=== PATIENT | female | born 1950 | race Caucasian/White ===

== ENCOUNTER 2021-10-05 15:22 | Outpatient (RCR) | payer OTHER, SELFPAY ==
--- NOTE | 2021-10-05 16:51 | PTOPEVAL ---
Thank you for referring Ignacia Pate to [facility].? Ignacia gilman presents to therapy clinic today without BPPV symptoms. During eval was unable to duplicate her symptoms. She has been provided eduction for home treatment if symptoms return. Will hold chart open for 30 days for possible return of her symptoms. If she returns, will plan to see her 1x/wk as needed to address her symptoms. Please review, sign, date and return this plan of care NORMA. I agree with and certify that the following plan of care is medically necessary. Referring Physician Date Attending Provider: Filiberto Harris MD Past Medical History Source of Past Medical History Patient Gastrointestinal History Hx Diverticulitis Yes Hx Hernia Yes HEENT History Hx Sinus Problems Yes Evaluation Information Problem Diagnosis BPPV Onset 6 month Subjective Information She c/o dizziness with turning Query Text:As Reported By Patient/ to the right in bed. States Family is improved recently. But noticed increased symptoms with bending forward and returning upright or turning head to left. 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 Reports lights will bother her eyes. Denies any issues with her neck. Pain Assessment Timing of Pain Assessment Timing of Pain Assessment Assessment Self Report Self Report Pain Level 0 Pain Score Pain Score 0: Self Report Cervical and Lumbar ROM Cervical ROM Cervical Flexion (0-60) 70:Active in Degrees Cervical Extension (0-70) 70:Active in Degrees Cervical Lateral Flexion Right (0-50) 40:Active in Degrees Cervical Lateral Flexion Left (0-50) 40:Active in Degrees Cervical ROM Comments no pain with motion Vestibular Evaluation Vestibular Medical Information Previous Medical Care/Testing ENT Symptoms Increase Bend Forward,Lie Down (sit to supine),Rolling in Bed,Sitting up in Bed Symptoms Decrease Holding Head in one Position Standardized Tests Dizziness Handicap Inventory Standardized Test Scores (Number 0-100) 16 Vestibular Testing Smooth Pursuits Normal Convergence Near Point (CM) 5 Saccades WNL Gaze Stabilization with Fixation WNL Gaze Stabilization without Fixation WNL Head Shake with Fixation WNL [place]-Hallpike Left WNL Sandra-Hallpike Right WNL Horizontal Roll Test in Supine Left WNL Horizontal Roll Test in Supine Right WNL General Exercise General Exercises
--- NOTE | 2021-10-30 16:31 | PCPTNOTE ---
left message for pt regarding her symptoms. Informed her of the plan to close her therapy chart due to no additional f/u visits needed.
--- NOTE | 2021-10-30 16:32 | PCPTNOTE ---
Admitting Provider: Attending Provider: Filiberto Harris MD Patient:Ignacia Pate Date of :1950 Physical Therapy Discharge Summary Patient has not returned for any further treatments since 10/05/2021, therefore she will be discharged at this time. Patient?s initial visit was on 10/05/2021 she had a total of 1 visits. BPPV assessment was performed, she was educated on home treatment program. She had been symptom free prior to her initial evaluation. Will DC skilled therapy services at this time. Thank you for referring this patient to [facility]. Please review, sign, date and return this discharge summary NORMA. I have been updated about the patient's current status and I agree with discharge from the above service at this time. Referring Physician Date
== END 2021-10-31 15:54 | disposition home or self-care (01) ==
LOC: ANHPT 15:22
PROVIDERS: PCP Internal Medicine; Visit Provider Otolaryngology
DX: H81.10 Benign paroxysmal vertigo, unspecified ear (principal)
CPT/HCPCS: 97110; 97161

== ENCOUNTER 2022-05-09 11:14 | Outpatient (CLI) | payer OTHER, SELFPAY ==
[2022-05-09 18:45] LABS: Basophils Percent Auto 0.4 % (0.2-1.2); Eosinophils Absolute Auto 0.2 K/mm3 (0-0.3); Eosinophils Percent Auto 2.1 % (0-4.4); Hematocrit 40.5 % (37.0-47.0); Hemoglobin 12.8 g/dL (12.0-15.0); Immature Granulocyte Absolute 0.03 K/mm3 (0.00-0.031); Immature Granulocyte Percent A 0.4 % (0-0.5); Lymphocytes Absolute Auto 3.15 K/mm3 (0.9-3.2); Lymphocytes Percent Auto 37.3 % (18.3-44.2); Mean Corpuscular HGB Conc 31.6 g/dl (32-36); Mean Corpuscular Hemoglobin 28.1 pg (26-34); Mean Corpuscular Volume 88.8 fl (80-100); Mean Platelet Volume 12.3 fl (7.4-10.4); Monocytes Absolute Auto 0.8 K/mm3 (0.1-0.6); Monocytes Percent Auto 9.1 % (2.6-8.5); Neutrophils Absolute Auto 4.3 K/mm3 (1.3-6.7); Neutrophils Percent Auto 50.7 % (45.5-73.1); Platelet Count Result 207 k/mm3 (150-375); Red Blood Count 4.56 M/mm3 (4.2-5.4); Red Cell Distribution Width 13.6 % (11.5-14.5); White Blood Count 8.5 K/mm3 (4.5-10.0)
[2022-05-09 20:00] LABS: Alanine Aminotransferase 67 U/L (6-35); Albumin Level 4.5 g/dL (3.5-5.1); Alkaline Phosphatase 83 U/L (38-126); Anion Gap 8 mmol/L (8-16); Aspartate Amino Transferase 59 U/L (14-36); Bilirubin,Total 0.4 mg/dL (0.2-1.3); Blood Urea Nitrogen 15 mg/dL (7-17); Calcium 9.9 mg/dL (8.4-10.2); Carbon Dioxide 29 mmol/L (22-30); Chloride 101 mmol/L (98-107); Cholesterol 219 mg/dL (0-200); Estimated Glomerular Filt Rate > 60; Glucose 74 mg/dL (65-110); HDL Direct 36 mg/dL; Potassium 4.4 mmol/L (3.4-5.0); Sodium 138 mmol/L (137-145); Triglycerides 203 mg/dL (<150)
[2022-05-09 20:11] LABS: LDL Cholesterol Direct 128 mg/dL
== END 2022-05-09 11:15 | disposition home or self-care (01) ==
LOC: ANHGOSHLAB 11:16
PROVIDERS: PCP Family Medicine; Visit Provider Family Medicine
DX: R53.83 Other fatigue (principal); Z13.220 Encounter for screening for lipoid disorders; Z13.228 Encounter for screening for other metabolic disorders
CPT/HCPCS: 36415; 80053; 80061; 85025

== ENCOUNTER 2022-05-18 11:34 | Outpatient (CLI) | payer OTHER, SELFPAY ==
[2022-05-18 19:11] LABS: Iron 70 ug/dL (37-170)
[2022-05-18 19:20] LABS: Percent Iron Saturation 24 % (20-50)
[2022-05-18 19:57] LABS: Hepatitis B Surface Antigen Negative (Negative)
[2022-05-18 20:03] LABS: HAV RESULT Negative (Negative); Hepatitis B Core IgM Result Negative (Negative)
[2022-05-18 20:14] LABS: Hepatitis C Virus Antibody Negative (Negative)
== END 2022-05-18 11:35 | disposition home or self-care (01) ==
PROVIDERS: PCP Family Medicine; Visit Provider Family Medicine
DX: R74.01 Elevation of levels of liver transaminase levels (principal)
CPT/HCPCS: 36415; 80074; 83540; 83550

== ENCOUNTER 2022-05-25 07:52 | Outpatient (CLI) | payer OTHER, SELFPAY ==
--- NOTE | ~2022-05-25 | US_ITS ---
EXAMINATION: US abdomen limited DATE: 05/25/2022 08:31 INDICATION: Elevated liver enzymes TECHNIQUE: Multiple grayscale and Doppler ultrasound images of the abdomen were obtained. COMPARISON: CT, 05/25/2015 FINDINGS: The head and body of the pancreas are normal. The pancreatic tail is obscured by bowel gas. The liver is normal with normal echogenicity and echotexture. No surface nodularity. Normal hepatope shonna flow in the main portal vein. The gallbladder is normal with no abnormal wall thickening, pericho lecystic fluid or stones. The normal common bile duct measures 5 mm. There was no sonographic Neves sign. IMPRESSION: 1. No sonographic correlate for the patient's symptoms. Reviewed, dictated and finalized at location B.
== END 2022-05-25 07:53 | disposition home or self-care (01) ==
PROVIDERS: PCP Family Medicine; Visit Provider Family Medicine
DX: R74.01 Elevation of levels of liver transaminase levels (principal)
CPT/HCPCS: 76705

== ENCOUNTER 2025-03-31 07:41 | Emergency (ER) | payer MEDICARE, SELFPAY ==
[2025-03-31] VITALS (34 sets, daily range): BP systolic 102–147; BP diastolic 65–102; PULSE 60–63; RESP 18; O2SAT 94–100
--- NOTE | ~2025-03-31 | CT_ITS ---
CT of the Abdomen and Pelvis: Indication: Abdominal pain Technique: 2.5 mm axial scans were obtained through the abdomen and pelvis following intravenous adm inistration of 100 cc of Omnipaque 350. Dose reduction technique was used on this scan by utilizing a utomated exposure control and iterative reconstruction technique. The dose-length product (DLP) was 2 69.42 mGy-cm. Findings: Scans through the lung bases are unremarkable. The liver, spleen, pancreas, gallbladder, adrenals and kidneys are within normal limits. No evidence of aortic aneurysm. No lymphadenopathy. No bowel obstruction or bowel wall thickening. There is no evidence to suggest acute appendicitis. Images through the pelvis were performed. Urinary bladder unremarkable. There is a large adnexal mass immediately anterior to the uterus with multiple subtle septations, measuring 11.6 x 8.2 x 10.7 cm i n overall size. Questionable soft tissue component at the inferior lateral aspect of the lesion. This is characterized the left ovary, though this is difficult to ascertain with certainty given the midl ine positioning of the lesion. No ascites. Impression: 11.6 x 8.2 x 10.7 cm complex adnexal mass, favored to arise from the left ovary. Questionable soft ti ssue component. Ovarian malignancy must be considered. Gynecological surgical consultation recommende d. Reviewed, dictated and finalized at location . Impression: 11.6 x 8.2 x 10.7 cm complex adnexal mass, favored to arise from the left ovary . Questionable soft tissue component. Ovarian malignancy must be considered. Gy necological surgical consultation recommended.
--- OUTSIDE RECORDS SUMMARY | 2025-03-31 07:44 | XMS_ITS | Clinical Summary ---
Author Organization [facility] Address [address] [place] [address] Care Team Providers Care Sketch Liner Name Role Phone Migule Angel Spence DO Primary Care Provider + Allergies Active Allergy Reactions Criticality Noted Date Comments Amoxicillin-Pot Clavulanate Other (see comment) 01/06/2024 Abdominal pain Medications Turmeric 500 MG Cap Active Multiple Vitamins-Minera ls (EYE VITAMINS OR) Active Multiple Vitamin (MULTIVITAMIN ADULT OR) Active montelukast (SINGULAIR) 10 MG tabletIndicatio ns:Seasonal allergic rhinitis, unspecified trigger Take 1 tablet (10 mg total) by mouth nightly at bedtime. 30 tablet 4 Active Additional Information Patient not taking.Reason: with vitamin d, Reported on 03/10/2025 omega-3 acid (LOVAZA) 1 GM capsule Take 2 capsules (2 g total) by mouth 2 (two) times daily. Active ciprofloxacin (CIPRO) 250 MG tabletIndicatio ns:Acute cystitis with hematuria,Left flank pain Take 1 tablet (250 mg total) by mouth 2 (two) times daily for 7 days. 14 tablet 5 03/17/20 25 Active Problems No known active problems Encounters Date Type Department Care Team Description 03/10/2025 1:09 PM CDT - 03/10/2025 11:59 PM CDT Hospital Encounter [facility] [address] [place] [address] Emily Brooks, PA Discharge Disposition: Home or Self Care (Routine Discharge) 03/10/2025 11:42 AM CDT - 03/10/2025 1:08 PM CDT Hospital Encounter [facility] [address] [place] [address] Emily Brooks PA Discharge Disposition: Home or Self Care (Routine Discharge) 03/10/2025 11:00 AM CDT Office Visit [facility] [id number] [place] [phone] Emily Brooks PA Back Pain (Low back pain, fatigue, weakness, cramping pains to low abdominal area-hurts to urinate) 03/10/2025 Results Follow-Up [facility] [id number] [place] [phone] Emily Brooks PA URINALYSIS AUTO DIP, XR ABD KUB, URINE BACTERIA CULTURE 03/10/2025 Travel 03/09/2025 Telephone [facility] [address] [phone] Miguel Angel Spence, DO Question 02/10/[address] [phone] Miguel Angel Spence, DO Advice from Last 3 Months Immunizations Immunization Administration Dates Next Due Fluzone High Dose - >Age 65 (Prefilled Syringe) 07/17/2022 Family History Medical History Relation Comments Dementia Father Atrial fibrillation Mother Hypertension Mother Relation Status Comments Father Mother Alive Social History Tobacco Use Types Packs/Day Years Used Date Smoking Tobacco: Never Passive Smoke Exposure: Past Smokeless Tobacco: Never Tobacco Cessation:Counseling Given: No Alcohol Use Standard Drinks/Week Comments Not Currently 1.7 (1 standard drink = 0.6 oz p ure alcohol) once every 2 weeks PHQ-2 Answer Date Recorded Patient Health Questionnaire-2 Score 0 03/10/2025 Comments No Sex and Gender Information Value Date Recorded Sex Assigned at Not on file Legal Sex Female 8:13 PM CDT Gender Identity Not on file Sexual Orientation Not on file Occupation Industry Job Start Date Job End Date Not on file Not on file Not on file Not on file Last Filed Vital Signs Vital Sign Reading Time Taken Comments Blood Pressure 108/65 03/10/2025 11:04 AM CDT Pulse 83 03/10/2025 11:04 AM CDT Temperature 36.6 C (97.9 F) 03/10/2025 11:04 AM CDT Respiratory Rate 20 03/10/2025 11:04 AM CDT Oxygen Saturation 99% 03/10/2025 11:04 AM CDT Inhaled Oxygen Concentration - - Weight 59.9 kg (132 lb) 03/10/2025 11:04 AM CDT Height 160 cm (5' 3) 03/10/2025 11:04 AM CDT Body Mass Index 23.38 03/10/2025 11:04 AM CDT Plan of Treatment Health Maintenance Due Date Last Done Comments DTaP, Tdap and Td Vaccines ( 1 - Tdap) 1971 Mammogram Screening 1992 Pneumococcal Vaccine: 50+ Years (1 of 1 - PCV) 2002 Zoster Vaccines (1 of 2) 2002 Annual Medicare Wellness Visit 2017 Dexa Scan (General) 2017 COVID-19 Vaccine ( - 2023-2 5 season) 2024 Colorectal Cancer Screening FIT-DNA (3 Years) 10/08/2026 10/08/2023, 10/08/2023, 07/07/2020 RSV Immunization or 60+ Years (1 - 1-dose 75+ series) 2027 Hepatitis C Completed 11/16/2022 PHQ-2 (Physician [facility]) Completed 03/10/2025 Meningococcal B Vaccine Aged Out No l onger eligible based on patient's age to complete this topic Meningococcal Vaccine Aged Out No mariely ariel eligible based on patient's age to complete this topic RSV Immunizations Under 20 Months Aged Out No longer eligible b ased on patient's age to complete this topic Procedures Procedure Name Priority Date/Time Associated Diagnosis Comments XR ABD KUB STAT 03/10/2025 11:50 AM CDT Acute cystitis with hematuria Left flank pain URINE BACTERIA CULTURE Routine 03/10/2025 11:48 AM CDT Suspected UTI URINALYSIS AUTO DIP Routine 03/10/2025 Suspected UTI COLOGUARD (EXACT SCIENCE) Routine 10/08/2023 10:30 AM LOANS CONSULTANT Screening for malignant neoplasm of colon HEPATITIS C ANTIBODY Routine 11/16/2022 10:17 AM LOANS CONSULTANT Elevated liver enzymes Screening for lipid disorders Screening for endocrine, metabolic and immunity disorder Annual physical exam Need for hepatitis C screening test from Last 3 Months or Most Recently Relevant to Health Maintenance Results * XR ABD KUB (03/10/2025 11:50 AM CDT) Anatomical Region Laterality Modality Abdomen Radiographic Yasmine ging 03/10/2025 11:5 0 AM CDT Impressions 03/10/2025 11:52 AM CDT IMPRESSION: Moderate amount of fecal material throughout the colon. If further imaging evaluation the patient's hematuria is needed, CT examination recommended. Ordered By: EMILY BROOKS Interpreted By: Arsh Frye MD, 03/10/2025 11:50 AM Narrative 03/10/2025 11:52 AM CDT [place] [id number] [place] [address] Procedure(s): XR ABD KUB Date of service: 03/10/2025 11:44 AM Provided clinical information: 74 years, Female, left flank pain Procedure and materials: Supine view the abdomen. Comparison studies: None. Findings: There is a moderate amount of fecal material that is present throughout the colon. No gaseous distention of the large or small bowel. No definite radiopaque calculi overlying the kidneys or expected course of the ureters. Procedure Note Arsh Frye MD - 03/10/2025 [facility] [address] [place] [id number] Procedure(s): XR ABD KUB Date of service: 03/10/2025 11:44 AM Provided clinical information: 74 years, Female, left flank pain Procedure and materials: Supine view the abdomen. Comparison studies: None. Findings: There is a moderate amount of fecal material that is present throughoutthe colon. No gaseous distention of the large or small bowel. No definiteradiopaque calculi overlying the kidneys or expected course of theureters. IMPRESSION: Moderate amount of fecal material throughout the colon. If further imagingevaluation the patient's hematuria is needed, CT examinationrecommended. Ordered By: EMILY BROOKS Interpreted By: Arsh Frye MD, 03/10/2025 11:50 AM Emily [facility] Final Result * URINE BACTERIA CULTURE (03/10/2025 11:48 AM CDT) SPEC DESCRIPTION URINE CLEAN CATCH 03/10/2025 1:09 PM CDT [facility] SPECIAL REQUESTS NO SPECIAL REQUEST 03/10/2025 1:09 PM CDT [facility] CULTURE RESULT NO GROWTH 2 DAYS 03/12/2025 6:48 AM CDT [facility] URINE SPECIMEN OBTAINED BY CLEAN CATCH PROCEDURE / Unknown 03/10/2025 11:48 AM CDT 03/10/2025 1:18 PM CDT Emily [facility] MICROBIOLOG[facility] - GENERAL ORDER ANALY Final Result [facility] [address] [place] [address], [place] [phone] [facility] [address] [place] [address], [place] [phone] * (ABNORMAL) URINALYSIS AUTO DIP (03/10/2025) COLOR (U) YELLOW YELLOW [id number], [place] TRANSPARENCY CLEAR CLEAR [id number], [facility] GLUCOSE (U) NEGATIVE NEGATIVE MG/DL [id number], [facility] BILIRUBIN (U) NEGATIVE NEGATIVE MG-[address], [facility] KETONES MG/DL (U) NEGATIVE NEGATIVE MG/DL [id number], [facility] SPECIFIC GRAVITY (U) 1.025 1.001 - 1.035 MG-[id number], [facility] BLOOD (U) TRACE (Non Hemolyzed, Intact)(A) NEGATIVE MG-[id number], [facility] U PH 5.5 5.0 - 9.0 MG-[id number], [place] PROTEIN (U) TRACE(A) NEGATIVE mg/dL [id number], [place] UROBILINOGEN 0.2 0.2 - 1.0 EU/dL = mg/dL [id number], [facility] NITRITES NEGATIVE NEGATIVE MG/DL [id number], [facility] LEUKOCYTES (U) NEGATIVE NEGATIVE MG-[address], [place] URINE SPECIMEN OBTAINED BY CLEAN CATCH PROCEDURE / Unknown 03/10/2025 us Emily [facility] URINE ORDERABLES Final Resul t -[id number], [place] [address] [place] [address], * COLOGUARD (EXACT SCIENCE) (10/08/2023 10:30 AM LOANS CONSULTANT) COLOGUARD RESULT Negative Negative [facility] (CLIA #:[id number]) Comment: NEGATIVE TEST RESULT. A negative Cologuard result indicates a low likelihood that a colorectal cancer (CRC) or advanced adenoma (adenomatous polyps with more advanced pre-malignant features) is present. The chance that a person with a negative Cologuard test has a colorectal cancer is less than 1 in 1500 (negative predictive value >99.9%) or has an advanced adenoma is less than 5.3% (negative predictive value 94.7%). These data are based on a prospective cross-sectional study of 10,000 individuals at average risk for colorectal cancer who were screened with both Cologuard and colonoscopy. (Roberto Jenkins al, N Engl J Med 2014;370(14):7312-5467) The normal value (reference range) for this assay is negative. COLOGUARD RE-SCREENING RECOMMENDATION: Periodic colorectal cancer screening is an important part of preventive healthcare for asymptomatic individuals at average risk for colorectal cancer. Following a negative Cologuard result, the [place] [employer] Society and U.S. Multi-Society Task Force screening guidelines recommend a Cologuard re-screening interval of 3 years. References: [place] [employer] Guideline for Colorectal Cancer Screening: https://www.cancer.org/cancer/fmyfn-pmmyej-tyowar/ipurahiyt-zudximsws-hdpkilq/ac s-rec ommendations.html.; Calvin DK, Lg WEINSTEIN, Bronson PatiñoK, Colorectal Cancer Screening: Recommendations for Physicians and Patients from the U.S. Multi-Society Task Force on Colorectal Cancer Screening , Am J Gastroenterology 2017; 112:9045-5573. TEST DESCRIPTION: Composite algorithmic analysis of stool DNA-biomarkers with hemoglobin immunoassay. Quantitative values of individual biomarkers are not reportable and are not associated with individual biomarker result reference ranges. Cologuard is intended for colorectal cancer screening of adults of either sex, 45 years or older, who are at average-risk for colorectal cancer (CRC). Cologuard has been approved for use by the U.S. FDA. The performance of Cologuard was established in a cross sectional study of average-risk adults aged 50-84. Cologuard performance in patients ages 45 to 49 years was estimated by sub-group analysis of near-age groups. Colonoscopies performed for a positive result may find as the most clinically significant lesion: colorectal cancer [4.0%], advanced adenoma (including sessile serrated polyps greater than or equal to 1cm diameter) [20%] or non- advanced adenoma [31%]; or no colorectal neoplasia [45%]. These estimates are derived from a prospective cross-sectional screening study of 10,000 individuals at average risk for colorectal cancer who were screened with both Cologuard and colonoscopy. (Roberto Jenkins al, N Engl J Med 2014;370(14):2017-2524.) Cologuard may produce a false negative or false positive result (no colorectal cancer or precancerous polyp present at colonoscopy follow up). A negative Cologuard test result does not guarantee the absence of CRC or advanced adenoma (pre-cancer). The current Cologuard screening interval is every 3 years. ([place] [employer] Society and U.S. Multi-Society Task Force). Cologuard performance data in a 10,000 patient pivotal study using colonoscopy as the reference method can be accessed at the following location: www.eYeka.com/results. Additional description of the Cologuard test process, warnings and precautions can be found at www.cologuard.com. STOOL STOOL SPECIMEN / Unknown 10/08/2023 10:30 AM LOANS CONSULTANT 10/09/2023 11:31 AM LOANS CONSULTANT Miguel Angel Spence DO BODY FLUIDS AND STOOLS O RDERABLES Final Result Performing Organization Address [facility] de Phone Number [employer], [facility] [address] [place] [address], [employer] (CLIA #:[id number]) [address] [place] [address] * HEPATITIS C ANTIBODY (11/16/2022 10:17 AM LOANS CONSULTANT) HEPATITIS C AB NON-REACTI VE NON-REACT DELPHINE 11/16/2022 8:09 PM LOANS CONSULTANT [facility] Comment: ANTIBODIES TO HCV NOT DETECTED. DOES NOT EXCLUDE THE POSSIBILITY OF EXPOSURE TO HCV. 11/16/2022 10:1 7 AM LOANS CONSULTANT us Miguel Angel Spence DO LABORATORY Final Re sult Performing Organization Address [facility]/ZIP Co de Phone Number [facility] [address] [place] [address], [place] [phone] from Last 3 Months or Most Recently Relevant to Health Maintenance Insurance [facility] Care Teams Sketch Liner Relationship Specialty Start Date End Date Miguel Angel Spence DO [address] [place] [id number] PCP - General FAMILY PRACTICE 11/16/22
--- OUTSIDE RECORDS SUMMARY | 2025-03-31 07:44 | XMS_ITS | Referral Summary ---
Author Organization [facility] Address [address] [place] [phone] Care Team Providers Care Patient Coordinator Front Desk Name Role Phone Jamie Garza DO Primary Care Provider [phone] Allergies No known active allergies Medications cetirizine HCl (ALLER-GEORGES ORAL) Take by mouth as needed Active Active Problems No known active problems Social History Tobacco Use Types Packs/Day Years Used Date Smoking Tobacco: Never Passive Smoke Exposure: Never Tobacco Cessation:Counseling Given: Not Answered Personal Safety Answer Date Recorded Getting School Help Needed Not on file 11/16 Comments Unknown Sex and Gender Information Value Date Recorded Sex Assigned at Not on file Legal Sex Female 3:49 PM CDT Gender Identity Not on file Sexual Orientation Not on file Last Filed Vital Signs Vital Sign Reading Time Taken Comments Blood Pressure 129/85 08/02/2022 9:45 AM FORESTRY BIOLOGY SPECIALIST Pulse 87 08/02/2022 9:45 AM FORESTRY BIOLOGY SPECIALIST Temperature 36.1 C (96.9 F) 08/02/2022 9:45 AM FORESTRY BIOLOGY SPECIALIST Respiratory Rate - - Oxygen Saturation 100% 08/02/2022 9:45 AM FORESTRY BIOLOGY SPECIALIST Inhaled Oxygen Concentration - - Weight 67.4 kg (148 lb 8 oz) 08/02/2022 9:45 AM FORESTRY BIOLOGY SPECIALIST Height 162.6 cm (5' 4) 08/02/2022 9:45 AM FORESTRY BIOLOGY SPECIALIST Body Mass Index 25.49 08/02/2022 9:45 AM FORESTRY BIOLOGY SPECIALIST Plan of Treatment Not on file Insurance [employer] Care Teams Patient Coordinator Front Desk Relationship Specialty Start Date End Date Jamie Garza DO PCP - General Family Medicine 04/19/22
--- OUTSIDE RECORDS SUMMARY | 2025-03-31 07:44 | XMS_ITS | Clinical Summary ---
Author Organization [facility] Address [address] [place] [phone] Care Team Providers Care Natural Remedy Consultant Name Role Phone Jamie Garza DO Primary Care Provider [phone] Allergies No known active allergies Medications cetirizine HCl (ALLER-GEORGES ORAL) Take by mouth as needed Active Active Problems No known active problems Surgical History Surgery Date Site/Laterality Comments TONSILLECTOMY APPENDECTOMY HERNIA REPAIR Medical History Medical History Date Comments Diverticulitis Social History Tobacco Use Types Packs/Day Years [...] on file Sexual Orientation Not on file Obstetrics History Last Filed Vital Signs Vital Sign Reading Time Taken Comments Blood Pressure 129/85 08/02/2022 9:45 AM CRYPTOLOGIST Pulse 87 08/02/2022 9:45 AM CRYPTOLOGIST Temperature 36.1 C (96.9 F) 08/02/2022 9:45 AM CRYPTOLOGIST Respiratory Rate - - Oxygen Saturation 100% 08/02/2022 9:45 AM CRYPTOLOGIST Inhaled Oxygen Concentration - - Weight 67.4 kg (148 lb 8 oz) 08/02/2022 9:45 AM CRYPTOLOGIST Height 162.6 cm (5' 4) 08/02/2022 9:45 AM CRYPTOLOGIST Body Mass Index 25.49 08/02/2022 9:45 AM CRYPTOLOGIST Plan of Treatment Health Maintenance Due Date Last Done Comments Breast Cancer Screening-Mammogram 1950 Colon Cancer Screening-Colonoscopy 1950 Depression Screening 1950 Fall Risk Assessment 1950 Hepatitis C Screening 1950 Osteoporosis Screening-Bone Density Scan 1950 DTaP/Tdap/Td Vaccine (1 - Tdap) 1963 Hepatitis B Screening 1970 Pneumococcal vaccine 65+ (1 of 1 - PCV) 2002 Zoster Vaccine (1 of 2) 2002 Well Visit 65+ 2017 Influenza Vaccine (#1) 2025 2, 08/04/2020, 07/08/2019, Additional history exists Insurance [facility] Care Teams Natural Remedy Consultant Relationship Specialty Start Date End Date Jamie Garza DO PCP - General Family Medicine 04/19/22
--- OUTSIDE RECORDS SUMMARY | 2025-03-31 07:44 | XMS_ITS | Patient Health Record ---
Author Organization Formerly [facility] [place] ([address]) Address [address] [place] [address] Care Team Providers Care Cover Inspector Name Role Phone Manuelcolin Miguel Angel Primary Care Provider Caty culelar Allergies No Known Allergies Reason For Referral No Information Medications Medication SIG (Take, Route, Frequency, Duration) Notes Start Date End Date Status Levocetirizine Dihydrochloride 5 MG 1 tab(s) orally once a day (in the evening); Duration: 30 day(s) 02/25/2024 Active AZELASTINE NASAL 137 mcg/inh 2 spray(s) intranasally 2 times a day; Duration: 30 days 02/25/2024 Active EPINEPHRINE AUTO-INJECTOR 0.3 MG DIRECTED INTRAMUSCULARLY ONCE; Duration: 1 DAYS *Please review for potential replacement for e-prescription and drug interaction check* 02/25/2024 Active Azelastine HCl 137 MCG/SPRAY 2 spray(s) intranasally 2 times a day; Duration: 30 days 02/25/2024 Active LEVOCETIRIZINE 5 mg 1 tab(s) orally once a day (in the evening); Duration: 30 day(s) 02/25/2024 Active Immunizations Vaccine Route Administration Date Status Comme nts DTaP < 7 y/o Unknown 07/30/1958 Administered Portal Inf ormation FluZone Quadrivalent Unknown 08/07/2021 Administered Po rtal Information H1N1 Influenza Unknown 07/31/2023 Administered Portal I nformation Influenza Unknown 05/28/2020 Administered Portal Infor mation NOC Influenza-Afluria PFS Unknown 07/07/2022 Administer ed Portal Information NOC Tdap Unknown 07/05/1966 Administered Portal Infor dayan Social History Tobacco Use: Social History Observation Description Date Details (start date - stop date) Never Smoker NA - NA Tobacco Control (Standard) Question Answer Notes Tobacco use: Nonsmoker Problems Problem Type SNOMED Code ICD Code Onset Dates Problem Status W/U Status Risk Notes Problem Chronic allergic conjunctivitis (17341530) Other chronic allergic conjunctivitis (H10.45) Active confirmed Problem Allergic rhinitis caused by pollen (disorder) (10075448) Allergic rhinitis due to pollen (J30.1) Active confirmed Problem Allergic rhinitis (19468870) Other allergic rhinitis (J30.89) Active confirmed Problem Allergic rhinitis caused by animal hair and dander (635528043673461) Allergic rhinitis due to animal (cat) (dog) hair and dander (J30.81) Active confirmed Plan Of Treatment No Information Insurance Providers Payer Name Payer Address Payer Phone Subscriber Number Group Number Insured Name Patient Relationship to Insured Coverage Start Date Coverage End Date [employer] [address] [address] [place] [phone] [id number] Ignacia Pate Self - patient is the insured 4 Medical (General) History Medical History History ICD Code Chronic rhinitis J31.0 Surgical History Surgery Date(Month/Year) appendectomy 05/26/2015 Hernia repair 04/02/2018
--- OUTSIDE RECORDS SUMMARY | 2025-03-31 07:44 | XMS_ITS ---
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 * Medical History: Objective: * Vitals: Assessment: Plan: * Treatment: * Billing Information: * Visit Code: * Procedure Codes: * Electronic signature of Elias Paulson PA-C on 03/31/2025 at 07:44 AM CDT Sign off status: Pending * Provider: Kev Paulson PA-C Date: 0 02/25/2024 Generated for Printi ng/Shalom/Antwonitting on: 0 03/31/2025 07:44 AM CDT
--- OUTSIDE RECORDS SUMMARY | 2025-03-31 07:44 | XMS_ITS | Encounter Summary ---
Author Organization [facility] Address [address] [place] [address] Care Team Providers Care Multimedia Journalist Name Role Phone Miguel Angel Spence DO Primary Care Provider + Encounter Details Date Type Department Care Team (Late st Contact Info) Description 08/07/2023 Adknowledge Message Enc [place] [address] [place] [id number] Mycacet, [facility] Provider MAMMOGRAM Social History Tobacco Use Types Packs/Day Years Used Date Smoking Tobacco: Never Passive Smoke Exposure: Past Smokeless Tobacco: Never Alcohol Use Standard Drinks/Week Comments Not Currently 1.7 (1 standard drink = 0.6 oz p ure alcohol) once every 2 weeks PHQ-2 Answer Date Recorded Patient Health Questionnaire-2 Score 0 11/16/2022 Comments No Sex and Gender Information Value Date Recorded Sex Assigned at Not on file Legal Sex Female 8:13 PM CDT Gender Identity Not on file Sexual Orientation Not on file Occupation Industry Job Start Date Job End Date Not on file Not on file Not on file Not on file documented as of this encounter Plan of Treatment Not on file documented as of this encounter Visit Diagnoses Not on filedocumented in this encounter Care Teams Multimedia Journalist Relationship Specialty Start Date End Date Miguel Angel Spence DO [address] [place] [address] PCP - General FAMILY PRACTICE 11/16/22 documented as of this encounter
--- OUTSIDE RECORDS SUMMARY | 2025-03-31 07:44 | XMS_ITS | Clinical Summary ---
Author Organization [facility] [employer] Address [address] [place] [address] Care Team Providers Care Anvilsmith Name Role Phone Andres Gonzalez MD Primary Care Provider [phone] Source Comments [facility] [employer],non-owned Affiliates and Associated Physician Practices is amultiple site organization consisting of ambulatory clinics and hospital sitesin [place], [place], [place] and [place]. This disclosure is being madepursuant to the Care Everywhere program and may not contain all information available regarding this patient. Last updated 18.[employer] Allergies No known active allergies Medications * Be aware that medications may not be up to date on this document. Alwaysverify current medications with the patient. No known medications Active Problems No known active problems Social History Tobacco Use Types Packs/Day Years Used Date Smoking Tobacco: Never Smokeless Tobacco: Never Comments Unknown Sex and Gender Information Value Date Recorded Sex Assigned at Not on file Legal Sex Female 8:51 AM CDT Gender Identity Not on file Sexual Orientation Not on file Last Filed Vital Signs Vital Sign Reading Time Taken Comments Blood Pressure 118/74 05/22/2021 2:48 PM CDT Pulse 78 05/22/2021 2:48 PM CDT Temperature 36.3 C (97.4 F) 05/22/2021 2:48 PM CDT Respiratory Rate 16 05/22/2021 2:48 PM CDT Oxygen Saturation 98% 05/22/2021 2:48 PM CDT Inhaled Oxygen Concentration - - Weight 65.8 kg (145 lb) 05/22/2021 2:48 PM CDT Height 162.6 cm (5' 4) 05/22/2021 2:48 PM CDT Body Mass Index 24.89 05/22/2021 2:48 PM CDT Plan of Treatment Health Maintenance Due Date Last Done Comments BONE DENSITY TESTING 1950 COLOGUARD (AGES 45-75) - COL ON CA SCREENING 1950 COLON MONITORING 1950 COLONOSCOPY - COLON CA SCREENING 1950 CT COLONOGRAPHY - COLON CA SCREENING 1950 Colorectal Cancer Screening 1950 FIT - COLON CA SCREENING 1950 FLEX SIG - COLON CA SCREENING 1950 LIPID TESTING 1950 MAMMOGRAM 1950 HEPATITIS C SCREENING 10/18/1970 DTAP/TDAP/TD VACCINES (1 - Tdap) 1971 PNEUMOCOCCAL VACCINE 50+ (1 of 1 - PCV) 2002 ZOSTER VACCINE (1 of 2) 2002 COVID-19 VACCINE (1 - 2023-2 5 season) 2024 DEPRESSION SCREENING 09/16/2024 INFLUENZA VACCINE (#1) 2025 0, 07/08/2019 Respiratory Syncytial Virus (RSV) Vaccine Pt: or over 60 yrs (1 - 1-dose 75+ series) 2027 HEPATITIS B VACCINE Aged Out No longe r eligible based on patient's age to complete this topic HIB VACCINE Aged Out No longer eligi ble based on patient's age to complete this topic HPV VACCINE Aged Out No longer eligi ble based on patient's age to complete this topic MENINGOCOCCAL (Group B) VACCINE SHARED DECISION-MAKING Aged Out No longer eligible based on patient's age to complete this topic MENINGOCOCCAL GROUPS A/C/Y/W VACCINE Aged Out No longer eligible b ased on patient's age to complete this topic Insurance [employer] Care Teams Anvilsmith Relationship Specialty Start Date End Date Andres Gonzalez MD [address] [place] [address] PCP - General Internal Medicine 05/22/21
--- OUTSIDE RECORDS SUMMARY | 2025-03-31 07:44 | XMS_ITS ---
Author Organization [facility] [place] ([address]) Address [address] [facility] [address] [place] [address] Care Team Providers Care Component Prep Operator Name Role Phone JordyMiguel Angel Primary Care Provider Caty Roberto, Provider Unavailable Unavailab le REASON FOR VISIT [facility] Conversion Encounter Medications Medication SIG (Take, Route, Frequency, Duration) Notes Start Date End Date Status Levocetirizine Dihydrochloride 5 MG 1 tab(s) orally once a day (in the evening); Duration: 30 day(s) 02/25/2024 Active EPINEPHRINE AUTO-INJECTOR 0.3 MG DIRECTED INTRAMUSCULARLY ONCE; Duration: 1 DAYS *Please review for potential replacement for e-prescription and drug interaction check* 02/25/2024 Active Azelastine HCl 137 MCG/SPRAY 2 spray(s) intranasally 2 times a day; Duration: 30 days 02/25/2024 Active Encounters Encounter [facility] Date [facility] [address] 02/29/2024 Provider Pardeep Allergic rhinitis due to pollen J30.1 Assessments Encounter Date Diagnosis (ICD Code) Assessment Notes Treatment Notes Treatment Clinical Notes Section Notes 02/29/2024 Allergic rhinitis due to pollen (ICD-10 - J30.1) Plan Of Treatment Medication Medication Name Sig Start Date Stop Date Notes Levocetirizine Dihydrochloride 5 MG 1 tab(s) orally once a day (in the evening); Duration: 30 day(s) 02/25/2024 EPINEPHRINE AUTO-INJECTOR 0.3 MG DIRECTED INTRAMUSCULARLY ONCE; Duration: 1 DAYS 02/25/2024 *Please review for potential replacement for e-prescription and drug interaction check* Azelastine HCl 137 MCG/SPRAY 2 spray(s) intranasally 2 times a day; Duration: 30 days 02/25/2024 Progress Notes * Ignacia PATEeDOB:[birth year] (74 yo F)Acc No.[id number]:02/29/2024 Patient: Ignacia ADAMS Provider: Rosa Gavin :1950 A ge:73 Y S ex:Female Date:02/29/2024 Address:[address] [place], [place] [address], [id number] Pcp:Miguel Angel Spence Subjective: * Chief Complaints: * 1 . Multum To Medispan Conversion Encounter. * Medical History: Objective: * Vitals: Assessment: * Assessment: 1. A llergic rhinitis due to pollen - J30.1 (Primary) Plan: * Treatment: * Billing Information: * Visit Code: * Procedure Codes: * Electronic signature of Prov te CastroZ-Migration on 03/31/2025 at 07:44 AM CDT Sign off status: Pending * Provider: Rosa Gavin Date: 02/29/2024 Generated for Viviana bales/Shalom/Antwonitting on: 0 03/31/2025 07:44 AM CDT
--- NOTE | 2025-03-31 08:08 | ED_ITS ---
HPI - Abdominal Pain General Chief Complaint: Abdominal Pain Stated Complaint: L ABD PAIN X3WKS Time Seen by Provider: 03/31/25 08:04 Source: patient Mode of arrival: ambulatory Limitations: no limitations History of Present Illness HPI narrative: 74 years old white female complaining of left lower quadrant pain, intermittent, cramps started 3 weeks ago, urgent care, urinary tract infection, finished a course of Cipro, good improvement, pain started back again last night worse with movement. Associated with nausea. She denies any fever, vomiting, chest pain, shortness of breath or back pain Related Data Home Medications ?Medication ?Instructions ?Recorded ?Confirmed ?Last Taken ?Type multivitamin (Multiple Vitamins 1 tablet PO DAILY 10/04/21 01/22/22 Unknown History tablet) Allergies Allergy/AdvReac Type Severity Reaction Status Date / Time amoxicillin Allergy Mild Unknown Verified 03/31/25 07:51 Review of Systems 2 Review of Systems: All systems reviewed & are unremarkable except as noted in HPI and below PMFSH Past Medical History Medical History Lesion of labia Hernia Incisional hernia without mention of obstruction or gangrene Diverticulitis Surgical History Surgical History History of tonsillectomy History of appendectomy Family History Family History Mother Patient's mother is in good health Father Patient's father is in good health Grandparent Cerebrovascular accident Other Family history of malignant neoplasm Social History Social History Smoking status: Never smoker Alcohol intake: current Drinks per week: 1 Substance use: never Substance use type: does not use Living arrangements: other Additional living arrangements comments: spouse Occupation/Education: retired Gender identity (if verbalized by the patient): Female Sexual Orientation (if Verbalized by the Patient): Straight or Heterosexual Exam 2 Narrative: General appearance: Well-developed, well-nourished Skin: Normal color Head: Normocephalic, nontraumatic Eyes: Clear conjunctiva ENT: Oropharynx normal, ears normal, nose normal Neck: Supple, nontender Chest and respiratory: Airway patent, no respiratory distress, no accessory muscle use Heart: Regular rate/rhythm Abdomen: Soft, left lower quadrant mild tenderness, no organomegaly, quiet bowel sounds Vascular: Normal peripheral pulses, normal capillary refill. Musculoskeletal: Normal range of motion, nontender back Neurologic: Alert and oriented ?3, PORTUGUESE TUTOR is normal as tested, no gross motor deficit Course Consultations Consultation #1: DR AGGARWAL OUTPATIENT FOLLOW-UP Date: 03/31/25 Time: 10:13 Vital Signs Vital signs: Vital Signs Pulse Rate 63 03/31/25 07:45 Respiratory Rate 18 03/31/25 07:45 Blood Pressure 147/88 H 03/31/25 07:45 Pulse Oximetry 98 03/31/25 07:45 Pulse Rate 60 03/31/25 09:00 Respiratory Rate 18 03/31/25 07:45 Blood Pressure 120/78 03/31/25 11:31 Pulse Oximetry 98 03/31/25 11:31 MDM - Abdominal Pain MDM Narrative Medical decision making narrative: Patient came with left lower quadrant pain Vital signs are stable Physical examination consistent with slight tenderness left lower quadrant Differential diagnosis include diverticulitis, urinary tract infection, kidney stone, constipation, ischemic colitis Blood workup today includes CBC, CMP, lactic acid, lipase showed NO ACUTE ABNORMALITIES Urinalysis showed NO EVIDENCE OF INFECTION CT abdomen and pelvis with IV contrast showed LEFT COMPLEX ADNEXAL MASS OVARIAN MALIGNANCY MUST BE CONSIDERED. DR. AGGARWAL WAS NOTIFIED, REQUESTED OUTPATIENT FOLLOW-UP. Differential Diagnosis Differential diagnosis: Likely abdominal pain, calculus of kidney, constipation and diverticulitis Medical Records Attestation: I reviewed the patient's medical records. Lab Data Attestation: I reviewed the patient's lab results. 03/31/25 08:31 03/31/25 08:53 Labs: Lab Results 03/31/25 03/31/25 03/31/25 Range/Units 08:31 08:44 08:53 WBC 5.7 (4.5-10.0) K/mm3 RBC 4.48 (4.2-5.4) M/mm3 Hgb 12.7 (12.0-15.0) g/dL Hct 39.1 (37.0-47.0) % MCV 87.3 (80-100) fl MCH 28.3 (26-34) pg MCHC 32.5 (32-36) g/dl RDW 13.8 (11.5-14.5) % Plt Count 174 (150-375) k/mm3 MPV 11.3 H (7.4-10.4) fl Immature Gran % (Auto) 0.2 (0-0.5) % Neut % (Auto) 60.6 (45.5-73.1) % Lymph % (Auto) 30.2 (18.3-44.2) % Amelia % (Auto) 6.0 (2.6-8.5) % Eos % (Auto) 2.6 (0-4.4) % Baso % (Auto) 0.4 (0.2-1.2) % Lymph # (Auto) 1.72 (0.9-3.2) K/mm3 Amelia # (Auto) 0.3 (0.1-0.6) K/mm3 Eos # (Auto) 0.2 (0-0.3) K/mm3 Baso # (Auto) 0.0 (0.0-0.1) K/mm3 Abs Immat Gran (auto) 0.01 (0.00-0.031) K/mm3 Absolute Neuts (auto) 3.5 (1.3-6.7) K/mm3 Absolute Nucleated RBC 0.000 (0.0-0.012) K/mm3 Nucleated RBC % 0.0 (0.0-0.2) % Sodium 139 (137-145) mmol/L Potassium 4.1 (3.4-5.0) mmol/L Chloride 108 H (98-107) mmol/L Carbon Dioxide 24 (22-30) mmol/L Anion Gap 7 (4-12) mmol/L BUN 17 (7-17) mg/dL Creatinine 0.90 0.70 (0.7-1.2) mg/dL Estim Creat Clear Calc 41 52 ml/min Estimated GFR > 60 > 60 (59 - ) Glucose 109 (65-110) mg/dL Lactic Acid 1.1 (0.7-2.0) mmol/L Calcium 9.0 (8.4-10.2) mg/dL Total Bilirubin 0.4 (0.2-1.3) mg/dL AST 28 (14-36) U/L ALT 24 (6-35) U/L Alkaline Phosphatase 60 (38-126) U/L Total Protein 7.5 (6.3-8.2) g/dL Albumin 3.9 (3.5-5.1) g/dL Lipase 102 (23-300) U/L Urine Color (Yellow) Urine Appearance (Clear) Urine pH (5.0-9.0) Ur Specific [place] (1.001-1.035) Urine Protein (Negative) mg/dL Urine Glucose (UA) (Negative) mg/dL Urine Ketones (Negative) mg/dL Ur Blood (Man) (Negative) Urine Nitrate (Negative) Urine Bilirubin (Negative) Urine Urobilinogen (<2.0) mg/dL Leukocyte Esterase Rfl (Negative) LOS/UL 03/31/ Range/Units 10:17 WBC (4.5-10.0) K/mm3 RBC (4.2-5.4) M/mm3 Hgb (12.0-15.0) g/dL Hct (37.0-47.0) % MCV (80-100) fl MCH (26-34) pg MCHC (32-36) g/dl RDW (11.5-14.5) % Plt Count (150-375) k/mm3 MPV (7.4-10.4) fl Immature Gran % (Auto) (0-0.5) % Neut % (Auto) (45.5-73.1) % Lymph % (Auto) (18.3-44.2) % Amelia % (Auto) (2.6-8.5) % Eos % (Auto) (0-4.4) % Baso % (Auto) (0.2-1.2) % Lymph # (Auto) (0.9-3.2) K/mm3 Amelia # (Auto) (0.1-0.6) K/mm3 Eos # (Auto) (0-0.3) K/mm3 Baso # (Auto) (0.0-0.1) K/mm3 Abs Immat Gran (auto) (0.00-0.031) K/mm3 Absolute Neuts (auto) (1.3-6.7) K/mm3 Absolute Nucleated RBC (0.0-0.012) K/mm3 Nucleated RBC % (0.0-0.2) % Sodium (137-145) mmol/L Potassium (3.4-5.0) mmol/L Chloride (98-107) mmol/L Carbon Dioxide (22-30) mmol/L Anion Gap (4-12) mmol/L BUN (7-17) mg/dL Creatinine (0.7-1.2) mg/dL Estim Creat Clear Calc ml/min Estimated GFR (59 - ) Glucose (65-110) mg/dL Lactic Acid (0.7-2.0) mmol/L Calcium (8.4-10.2) mg/dL Total Bilirubin (0.2-1.3) mg/dL AST (14-36) U/L ALT (6-35) U/L Alkaline Phosphatase (38-126) U/L Total Protein (6.3-8.2) g/dL Albumin (3.5-5.1) g/dL Lipase (23-300) U/L Urine Color Yellow (Yellow) Urine Appearance Clear (Clear) Urine pH 5.5 (5.0-9.0) Ur Specific [place] > 1.045 H (1.001-1.035) Urine Protein Negative (Negative) mg/dL Urine Glucose (UA) Negative (Negative) mg/dL Urine Ketones Negative (Negative) mg/dL Ur Blood (Man) Negative (Negative) Urine Nitrate Negative (Negative) Urine Bilirubin Negative (Negative) Urine Urobilinogen 0.2 (<2.0) mg/dL Leukocyte Esterase Rfl Negative (Negative) LOS/UL Imaging Data Radiologist's impression: ITS Impressions Abdomen/Pelvis CT 03/31/25 09:20 Impression: 11.6 x 8.2 x 10.7 cm complex adnexal mass, favored to arise from the left ovary. Questionable soft tissue component. Ovarian malignancy must be considered. Gynecological surgical consultation recommended. Critical Care Time Critical Care Time Critical Care Time: No Discharge Plan Discharge Clinical Impression: Abdominal pain, Mass of left ovary Patient Disposition: Home Condition: Stable Instructions: Abdominal Pain (ED) Additional Instructions: RETURN IF SYMPTOMS ARE WORSENING , CALL DR AGGARWAL FOR APPOINTMENT, TAKE TYLENOL, IBUPROFEN NEEDED FOR ACHES AND PAIN, CONTINUE HOME MEDICATIONS. Patient Language: Georgian Prescriptions: New tramadol 50 mg tablet 50 mg PO Q4H PRN (Reason: pain) Qty: 20 0RF No Action fluticasone propionate [Flonase Allergy Relief] 50 mcg/actuation spray,suspension 2 spray intranasal BID Qty: 16 3RF Rx Instructions: administer into each nostril multivitamin [Multiple Vitamins] Tablet 1 tablet PO DAILY amitriptyline 25 mg tablet 25 mg PO QHS Qty: 30 1RF Follow-up/Referrals: Michael Aggarwal MD [Physician] - 03/31/25 Jordy,DO Miguel Angel [Primary Care Provider] -
--- OUTSIDE RECORDS SUMMARY | 2025-03-31 08:23 | XMS_ITS | Clinical Summary ---
Author Organization [facility] Address [address] [place] [address] Care Team Providers Care Curing Press Maintainer Name Role Phone Jamie Garza DO Primary Care Provider [phone] Allergies No known active allergies Medications cetirizine [...] Comments Blood Pressure 129/85 08/02/2022 9:45 AM BALLOON PILOT Pulse 87 08/02/2022 9:45 AM BALLOON PILOT Temperature 36.1 C (96.9 F) 08/02/2022 9:45 AM BALLOON PILOT Respiratory Rate - - Oxygen Saturation 100% 08/02/2022 9:45 AM BALLOON PILOT Inhaled Oxygen Concentration - - Weight 67.4 kg (148 lb 8 oz) 08/02/2022 9:45 AM BALLOON PILOT Height 162.6 cm (5' 4) 08/02/2022 9:45 AM BALLOON PILOT Body Mass Index 25.49 08/02/2022 9:45 AM BALLOON PILOT Plan of Treatment Health Maintenance Due Date [...] 2, 08/04/2020, 07/08/2019, Additional history exists Insurance [facility] Care Teams Curing Press Maintainer Relationship Specialty Start Date End Date Jamie Garza DO PCP - General Family Medicine 04/19/22
--- OUTSIDE RECORDS SUMMARY | 2025-03-31 08:23 | XMS_ITS | Referral Summary ---
Author Organization [facility] Address [address] [place] [address] Care Team Providers Care Relay Operator Name Role Phone Jamie Garza DO Primary Care Provider [phone] Allergies No known active allergies Medications cetirizine [...] Comments Blood Pressure 129/85 08/02/2022 9:45 AM DIGITAL STRATEGY DIRECTOR Pulse 87 08/02/2022 9:45 AM DIGITAL STRATEGY DIRECTOR Temperature 36.1 C (96.9 F) 08/02/2022 9:45 AM DIGITAL STRATEGY DIRECTOR Respiratory Rate - - Oxygen Saturation 100% 08/02/2022 9:45 AM DIGITAL STRATEGY DIRECTOR Inhaled Oxygen Concentration - - Weight 67.4 kg (148 lb 8 oz) 08/02/2022 9:45 AM DIGITAL STRATEGY DIRECTOR Height 162.6 cm (5' 4) 08/02/2022 9:45 AM DIGITAL STRATEGY DIRECTOR Body Mass Index 25.49 08/02/2022 9:45 AM DIGITAL STRATEGY DIRECTOR Plan of Treatment Not on file Insurance [facility] Care Teams Relay Operator Relationship Specialty Start Date End Date Jamie Garza DO PCP - General Family Medicine 04/19/22
--- OUTSIDE RECORDS SUMMARY | 2025-03-31 08:23 | XMS_ITS | Clinical Summary ---
Author Organization [facility] [employer] Address [address] [place] [address] Care Team Providers Care Glue Bone Crusher Name Role Phone Andres Gonzalez MD Primary Care Provider [phone] Source Comments [employer],non-owned Affiliates and Associated Physician Practices is amultiple site organization consisting of ambulatory clinics and hospital sitesin [place], [place], [place] and [place]. This disclosure is being madepursuant to the Care Everywhere program and may not contain all information available regarding this patient. Last updated 18.[employer] Allergies No known active allergies Medications * [...] this topic Insurance [employer] Care Teams Glue Bone Crusher Relationship Specialty Start Date End Date Andres Gonzalez MD [address] [place] [address] PCP - General Internal Medicine 05/22/21
--- OUTSIDE RECORDS SUMMARY | 2025-03-31 08:23 | XMS_ITS | Encounter Summary ---
Author Organization [facility] Address [address] [place] [address] Care Team Providers Care Glazing Superintendent Name Role Phone Miguel Angel Spence DO Primary Care Provider + Encounter Details Date Type Department Care Team (Late st Contact Info) Description 08/07/2023 [employer] Message Enc [place] [address] [place] [id number] Mycacet, [facility] Provider MAMMOGRAM Social History Tobacco Use Types [...] on filedocumented in this encounter Care Teams Glazing Superintendent Relationship Specialty Start Date End Date Miguel Angel Spence DO [address] [place] [address] PCP - General FAMILY PRACTICE 11/16/22 documented as of this encounter
--- OUTSIDE RECORDS SUMMARY | 2025-03-31 08:23 | XMS_ITS | Clinical Summary ---
Author Organization [facility] Address [address] [place] [address] Care Team Providers Care Circular Saw Operator Name Role Phone Miguel Angel Spence DO [...] - 03/10/2025 11:59 PM CDT Hospital Encounter [facility] [address] [place] [address] Emily Brooks, PA Discharge Disposition: Home or Self Care (Routine Discharge) 03/10/2025 11:42 AM CDT - 03/10/2025 1:08 PM CDT Hospital Encounter [facility] [address] [place] [address] Emily Brooks PA Discharge Disposition: Home or Self Care (Routine Discharge) 03/10/2025 11:00 AM CDT Office Visit [facility] [id number] [place] [phone] Emily Brooks PA Back Pain (Low back pain, fatigue, weakness, cramping pains to low abdominal area-hurts to urinate) 03/10/2025 Results Follow-Up [facility] [id number] [place] [phone] Emily Brooks PA URINALYSIS AUTO DIP, XR ABD KUB, URINE BACTERIA CULTURE 03/10/2025 Travel 03/09/2025 Telephone [facility] [address] [phone] Miguel Angel Spence, DO Question 02/10/[address] [phone] Miguel Angel Spence, DO Advice from Last [...] 2027 Hepatitis C Completed 11/16/2022 PHQ-2 (Physician Alutiiq) Completed 03/10/2025 Meningococcal B Vaccine Aged Out [...] COLOGUARD (EXACT SCIENCE) Routine 10/08/2023 10:30 AM GRANULATOR TENDER Screening for malignant neoplasm of colon HEPATITIS C ANTIBODY Routine 11/16/2022 10:17 AM GRANULATOR TENDER Elevated liver enzymes Screening for lipid disorders [...] 11:50 AM Narrative 03/10/2025 11:52 AM CDT [place] [id number] [place] [address] Procedure(s): XR ABD KUB Date of service: [...] Procedure Note Arsh Frye MD - 03/10/2025 [facility] [address] [place] [id number] Procedure(s): XR ABD KUB Date of service: [...] URINE CLEAN CATCH 03/10/2025 1:09 PM CDT [facility] SPECIAL REQUESTS NO SPECIAL REQUEST 03/10/2025 1:09 PM CDT [facility] CULTURE RESULT NO GROWTH 2 DAYS 03/12/2025 6:48 AM CDT [facility] URINE SPECIMEN OBTAINED BY CLEAN CATCH PROCEDURE / Unknown 03/10/2025 11:48 AM CDT 03/10/2025 1:18 PM CDT Emily VICTORIA MICROBIOLOGY - GENERAL ORDER ANALY Final Result [facility] [address] [place] [address], [place] [phone] [facility] [address] [place] [address], [place] [phone] * (ABNORMAL) URINALYSIS AUTO DIP (03/10/2025) COLOR (U) YELLOW YELLOW [id number], [place] TRANSPARENCY CLEAR CLEAR MG-[address], [facility] GLU[facility]SE (U) NEGATIVE NEGATIVE MG/DL MG-[id number], [facility] BILIRUBIN (U) NEGATIVE NEGATIVE MG-[address], [facility] KETONES MG/DL (U) NEGATIVE NEGATIVE MG/DL MG-[address], [facility] SPECIFIC GRAVITY (U) 1.025 1.001 - 1.035 MG-[address], [facility] BLOOD (U) TRACE (Non Hemolyzed, Intact)(A) NEGATIVE MG-[address], [facility] U PH 5.5 5.0 - 9.0 MG-[address], [place] PROTEIN (U) TRACE(A) NEGATIVE mg/dL MG-[address], [place] UROBILINOGEN 0.2 0.2 - 1.0 EU/dL = mg/dL MG-[address], [facility] NITRITES NEGATIVE NEGATIVE MG/DL MG-[address], [facility] LEUKOCYTES (U) NEGATIVE NEGATIVE MG-[address], [place] URINE SPECIMEN OBTAINED BY CLEAN CATCH PROCEDURE / Unknown 03/10/2025 us Emily VICTORIA URINE ORDERABLES Final Resul t -[id number], [place] [address] [place] [address], * COLOGUARD (EXACT SCIENCE) (10/08/2023 10:30 AM GRANULATOR TENDER) COLOGUARD RESULT Negative Negative [employer] (CLIA #:[id number]) Comment: NEGATIVE TEST RESULT. A negative Cologuard [...] (Roberto Jenkins al, N Engl J Med 2014;370(14):8467-4757) The normal value (reference range) for this assay is negative. COLOGUARD RE-SCREENING RECOMMENDATION: Periodic colorectal cancer screening is an important part of preventive healthcare for asymptomatic individuals at average risk for colorectal cancer. Following a negative Cologuard result, the [place] [employer] Society and U.S. Multi-Society Task Force screening guidelines recommend a Cologuard re-screening interval of 3 years. References: [place] [employer] Guideline for Colorectal Cancer Screening: https://www.cancer.org/cancer/byoag-sgmiff-thtdre/xztmemsgw-fulzojcrg-pbbuujd/ac s-rec ommendations.html.; Calvin DK, Lg WEINSTEIN, Bronson PatiñoK, Colorectal Cancer Screening: Recommendations for Physicians and Patients from the U.S. Multi-Society Task Force on Colorectal Cancer Screening , Am J Gastroenterology 2017; 112:1194-3607. TEST DESCRIPTION: Composite algorithmic analysis of stool [...] (Roberto Jenkins al, N Engl J Med 2014;370(14):6726-6367.) Cologuard may produce a false negative or false positive result (no colorectal cancer or precancerous polyp present at colonoscopy follow up). A negative Cologuard test result does not guarantee the absence of CRC or advanced adenoma (pre-cancer). The current Cologuard screening interval is every 3 years. ([place] [employer] and U.S. Multi-Society Task Force). Cologuard performance data in a 10,000 patient pivotal study using colonoscopy as the reference method can be accessed at the following location: www.[employer].com/results. Additional description of the Cologuard test process, warnings and precautions can be found at www.cologuard.com. STOOL STOOL SPECIMEN / Unknown 10/08/2023 10:30 AM GRANULATOR TENDER 10/09/2023 11:31 AM GRANULATOR TENDER Miguel Angel Spence DO BODY FLUIDS AND STOOLS O RDERABLES Final Result Performing Organization Address [facility] de Phone Number [employer], [facility] [address] [place] [address], [employer] (CLIA #:[id number]) [address] [place] [address] * HEPATITIS C ANTIBODY (11/16/2022 10:17 AM GRANULATOR TENDER) HEPATITIS C AB NON-REACTI VE NON-REACT DELPHINE 11/16/2022 8:09 PM GRANULATOR TENDER [facility] Comment: ANTIBODIES TO HCV NOT DETECTED. DOES NOT EXCLUDE THE POSSIBILITY OF EXPOSURE TO HCV. 11/16/2022 10:1 7 AM GRANULATOR TENDER us Miguel Angel Spence DO LABORATORY Final Re sult Performing Organization Address [facility]/ZIP Co de Phone Number [facility] [address] [place] [address], [place] [phone] from Last 3 Months or Most Recently Relevant to Health Maintenance Insurance [facility] Care Teams Circular Saw Operator Relationship Specialty Start Date End Date Miguel Angel Spence DO [address] [place] [id number] PCP - General FAMILY PRACTICE 11/16/22
[2025-03-31] MEDS: ONDANSETRON INJ 4 MG/2 ML VIAL IV PUSH ×2 (08:27→09:15)
[2025-03-31] MEDS: HYDROmorphone HCL INJ (*CRX) 2 MG/ML VIAL 0.5 MG IV PUSH ×3 (08:27→11:56)
[2025-03-31] MEDS: SODIUM CHLORIDE 0.9% IV 1,000 ML 999 ML IV CONT (08:28)
[2025-03-31 08:37] LABS: Hematocrit 39.1 % (37.0-47.0); Hemoglobin 12.7 g/dL (12.0-15.0); Immature Granulocyte Percent A 0.2 % (0-0.5); Lymphocytes Absolute Auto 1.72 K/mm3 (0.9-3.2); Mean Corpuscular HGB Conc 32.5 g/dl (32-36); Mean Corpuscular Hemoglobin 28.3 pg (26-34); Mean Corpuscular Volume 87.3 fl (80-100); Nucleated Red Blood Cells Absolute Auto 0.000 K/mm3 (0.0-0.012); Nucleated Red Blood Cells Perc 0.0 % (0.0-0.2); Platelet Count Result 174 k/mm3 (150-375); Red Blood Count 4.48 M/mm3 (4.2-5.4); White Blood Count 5.7 K/mm3 (4.5-10.0)
[2025-03-31 08:46] LABS: Estimated CRCL calculation 41 ml/min; Estimated Glomerular Filt Rate > 60
--- NOTE | 2025-03-31 08:58 | PC.NURSE ---
patient aware that we need a urine sample
[2025-03-31 10:15] LABS: Alanine Aminotransferase 24 U/L (6-35); Albumin Level 3.9 g/dL (3.5-5.1); Alkaline Phosphatase 60 U/L (38-126); Anion Gap 7 mmol/L (4-12); Aspartate Amino Transferase 28 U/L (14-36); Bilirubin,Total 0.4 mg/dL (0.2-1.3); Blood Urea Nitrogen 17 mg/dL (7-17); Calcium 9.0 mg/dL (8.4-10.2); Carbon Dioxide 24 mmol/L (22-30); Chloride 108 mmol/L (98-107); Estimated CRCL calculation 52 ml/min; Estimated Glomerular Filt Rate > 60; Glucose 109 mg/dL (65-110); Lipase 102 U/L (23-300); Potassium 4.1 mmol/L (3.4-5.0); Sodium 139 mmol/L (137-145); Total Protein 7.5 g/dL (6.3-8.2)
--- NOTE | 2025-03-31 10:20 | PC.NURSE ---
spoke with lab at this time to run urine sample that was sent down
[2025-03-31 10:26] LABS: Add Urine Microscopic? NO; Appearance Urine Clear (Clear); Glucose Urine UA Negative (Negative); Leukocyte Esterase Ur Negative LEU/UL (Negative); Nitrate Urine Negative (Negative); Specific Grav Ur > 1.045 (1.001-1.035)
--- NOTE | 2025-03-31 11:48 | PC.NURSE ---
Patient states that pain has not been gone at all during her stay, that it feels like it's in one spot and feels like a big blob in my belly right here while pointing to left lower quadrant. spoke with Dr. Montoya
== END 2025-03-31 12:43 | disposition home or self-care (01) ==
PROVIDERS: Emergency Provider Emergency Medicine; PCP Student in an Organized Health Care Education/Training Program
DX: R10.32 Left lower quadrant pain (principal); D39.12 Neoplasm of uncertain behavior of left ovary
CPT/HCPCS: 36415; 74177; 80053; 81003; 83605; 83690; 85025; 96361; 96374; 96375; 96376; 99284; J1171; J2405; J7030; Q9967